=== PATIENT | male | born 1990 | race African-American/Black ===

== ENCOUNTER 2021-10-14 09:11 | Emergency (ER) | payer SELFPAY ==
[2021-10-14 17:20] LABS: SARS-CoV-2 PCR by NAA DETECTED (NotDetected)
== END 2021-10-14 10:13 | disposition home or self-care (01) ==
LOC: ERS 09:11
DX: U07.1 COVID-19 (principal); I10 Essential (primary) hypertension
CPT/HCPCS: 99283; U0003; U0005

== ENCOUNTER 2021-10-20 09:17 | Emergency (ER) | payer SELFPAY ==
[2021-10-20 16:00] LABS: SARS-CoV-2 PCR by NAA DETECTED (NotDetected)
== END 2021-10-20 09:55 | disposition home or self-care (01) ==
LOC: ERS 09:17
DX: U07.1 COVID-19 (principal); I10 Essential (primary) hypertension
CPT/HCPCS: 99283; U0003; U0005

== ENCOUNTER 2022-12-01 20:51 | Emergency (ER) | payer OTHER, SELFPAY ==
[2022-12-01] MEDS ORDERED: Acetaminophen 500 MG TAB ONE (22:00)
[2022-12-01 22:41] LABS: SARS-CoV-2 NAA Rapid Test Not Detected (NotDetected)
== END 2022-12-01 22:48 | disposition home or self-care (01) ==
LOC: ERS 20:51
DX: J02.0 Streptococcal pharyngitis (principal); I10 Essential (primary) hypertension; Z20.822 Contact with and (suspected) exposure to COVID-19
CPT/HCPCS: 87430; 99283

== ENCOUNTER 2024-07-27 10:50 | Emergency (ER) | payer SELFPAY ==
[2024-07-27 13:41] LABS: Bacteria/HPF None Seen HPF (None Seen); Bilirubin Negative (Negative); Blood, Urine Negative (Negative); CAUTI Indications for Culture Dysuria,urgency,freq; Clarity Clear (Clear); Glucose, Urine (Dipstick) Greater than 1000 mg/dL (Negative); Ketone, Urine Negative (Negative); Leukocyte 75 Leu/uL (Negative); Nitrite 1+ (Negative); Protein, Urine (Dipstick) Negative (Neg-Trace); RBC/HPF 0-3 HPF (0-3); Specific Gravity, Urine 1.018 (1.002-1.036); Squamous Epithelial None Seen HPF (0-3); Urobilinogen Normal mg/dL (Less than 2); pH, Urine 5.5 (5.0-9.0)
[2024-07-27 13:52] LABS: Urine Culture Reflex Yes Yes
[2024-07-27 23:39] LABS: Chlam.trachomatis by PCR,Urine Not Detected (NotDetected); GC N.gonorrhoeae PCR,UrineVOID Not Detected (NotDetected)
== END 2024-07-27 14:56 | disposition home or self-care (01) ==
LOC: ERS 10:50
DX: N30.90 Cystitis, unspecified without hematuria (principal); R73.9 Hyperglycemia, unspecified; I10 Essential (primary) hypertension
CPT/HCPCS: 36416; 81001; 87086; 87491; 87591